=== PATIENT | female | born 1950 | race Two or more races ===

== ENCOUNTER → 2016-11-23 | Outpatient (REF) | payer BC | LOC: M LABNEURO 17:02 | PROVIDERS: ATTEND Internal Medicine Endocrinology, Diabetes & Metabolism | DX: E89.0 Postprocedural hypothyroidism (principal) ==

== ENCOUNTER → 2017-11-07 | Outpatient (REF) | payer BC | LOC: M LABNEURO 13:43 | DX: R19.7 Diarrhea, unspecified (principal); R11.2 Nausea with vomiting, unspecified | CPT/HCPCS: 87507 ==

== ENCOUNTER 2018-08-08 08:34 | Day surgery (SDC) | payer BC ==
[~2018-08-08 08:34] MED LIST: MIDAZOLAM INJ 2 MG/2 ML VIAL (J2250) As Ordered; fentaNYL 100 MCG/2 ML INJECTION (J3010) As Ordered
[2018-08-08] MEDS: OFLOXACIN 0.3 % (OCUFLOX) OPTH SOL 5ML OS (09:11)
[2018-08-08] MEDS: TROPICAMIDE 1% OPHTH SOLN 2ML OS (09:11)
[2018-08-08] MEDS: PHENYLEPHRINE 2.5% OPHTH SOL 2ML OS (09:12)
[2018-08-08] MEDS: PROPARACAINE 0.5% OPHTH SOL 15ML OS (09:12)
[2018-08-08] MEDS: POVIDONE-IODINE 5% OPHTH PREP SOL 30ML As Ordered (10:37)
[2018-08-08] MEDS: CEFUROXIME 1MG/0.1ML INTRACAMERAL INJ As Ordered (10:39)
[2018-08-08] MEDS: DUOVISC (0.50ML VISCOAT/0.55ML PROVISC) OPHTH KIT As Ordered ×2 (10:39→10:40)
[2018-08-08] MEDS: BALANCED SALT IRRIGATION SOLUTION 500ML BAG (FOR OR EYE MACHINE) As Ordered (10:39)
[2018-08-08] MEDS: LIDOCAINE 0.75%/EPINEPHRINE 0.025% IN BSS 1ML SYR INTRACAMERAL (OR ONLY) As Ordered (10:39)
[2018-08-08] MEDS ORDERED: ONDANSETRON 4MG/2ML VIAL (J2405) IV (11:15)
[2018-08-08] MEDS ORDERED: ACETAMINOPHEN TAB 650MG DOSE (2X325MG) As Ordered (11:18)
[2018-08-08] MEDS: ACETAMINOPHEN TAB 650MG DOSE (2X325MG) PO (11:20)
== END 2018-08-08 11:42 | disposition home or self-care (01) ==
LOC: M SDC 08:34
DX: H25.12 Age-related nuclear cataract, left eye (principal); H40.1120 Primary open-angle glaucoma, left eye, stage unspecified; E03.9 Hypothyroidism, unspecified; K21.9 Gastro-esophageal reflux disease without esophagitis; R06.83 Snoring; Z79.899 Other long term (current) drug therapy
CPT/HCPCS: 66984

== ENCOUNTER → 2019-07-09 | Outpatient (REF) | payer BC ==
[~2019-07-09] MED LIST changes: +AZIT500T5 PO; -MIDAZOLAM INJ 2 MG/2 ML VIAL (J2250) As Ordered; +SYNT100T PO; -fentaNYL 100 MCG/2 ML INJECTION (J3010) As Ordered
[2019-07-09 17:42] LABS: CHOLESTEROL LEVEL 157 MG/DL (<200); CHOLESTEROL RISK RATIO 2.415 (<5); FREE T4 1.15 NG/DL (0.76-1.46); HDL CHOLESTEROL 65 MG/DL (>40); LDL CHOLESTEROL 58 MG/DL (<100); NON-HDL-C 92 MG/DL; RHEUMATOID FACTOR QUANT < 10.0 IU/ML (<15.0); TRIGLYCERIDES LEVEL 171 MG/DL (<150)
[2019-07-09 17:44] LABS: FOLATE > 24.0 NG/ML; VITAMIN B12 LEVEL 719 PG/ML
[2019-07-09 18:41] LABS: HEMOGLOBIN A1c 6.9 %
[2019-07-11 14:09] LABS: ANTINUCLEAR ANTIBODIES DIRECT Negative (Negative)
== END ==
LOC: M LABNEURO 13:41
PROVIDERS: ATTEND Psychiatry & Neurology Neurology
DX: E03.9 Hypothyroidism, unspecified (principal); M54.5 Low back pain; M54.2 Cervicalgia

== ENCOUNTER → 2019-07-17 | Outpatient (REF) | payer BC ==
[~2019-07-17] MED LIST changes: +AZIT500T2 PO; -AZIT500T5 PO
== END ==
LOC: M LABDRAW1 10:31
PROVIDERS: ATTEND Internal Medicine Endocrinology, Diabetes & Metabolism
DX: M81.0 Age-related osteoporosis without current pathological fracture (principal)

== ENCOUNTER → 2019-11-24 | Outpatient (REF) | payer BC ==
[~2019-11-24] MED LIST changes: -AZIT500T2 PO; +AZIT500T5 PO
[2019-11-24 14:07] LABS: ALBUMIN 4.3 GM/DL (3.2-5.2); BILIRUBIN,TOTAL 0.5 MG/DL (0.2-1.0); CALCIUM LEVEL 9.3 MG/DL (8.8-10.2); CHOLESTEROL RISK RATIO 2.734 (<5); CREATININE FOR GFR 1.06 MG/DL (0.55-1.30); POTASSIUM SERUM 4.3 MEQ/L (3.5-5.1); THYROID STIMULATING HORMONE 6.07 uIU/ML (0.358-3.740); TOTAL 25(OH) VITAMIN D 27.4 NG/ML (30.0-100.0); TOTAL PROTEIN 7.5 GM/DL (6.4-8.2)
[2019-11-24 14:41] LABS: HEMOGLOBIN A1c 6.4 %
== END ==
LOC: M LABNEURO 13:05
PROVIDERS: ATTEND Internal Medicine Endocrinology, Diabetes & Metabolism
DX: M81.0 Age-related osteoporosis without current pathological fracture (principal)

== ENCOUNTER → 2022-06-20 | Outpatient (CLI) | payer BC ==
[2022-06-20 15:41] LABS: ALBUMIN 3.7 GM/DL (3.2-5.2); ALT/SGPT 36 U/L (12-78); BILIRUBIN,TOTAL 0.5 MG/DL (0.2-1.0); BLOOD UREA NITROGEN 14 MG/DL (7-18); CALCIUM LEVEL 9.6 MG/DL (8.8-10.2); CARBON DIOXIDE LEVEL 27 MEQ/L (21-32); CHLORIDE LEVEL 107 MEQ/L (98-107); CREATININE FOR GFR 0.85 MG/DL (0.55-1.30); GLOMERULAR FILTRATION RATE > 60.0 (>39); GLUCOSE, FASTING 109 MG/DL (70-100); POTASSIUM SERUM 4.4 MEQ/L (3.5-5.1); SODIUM LEVEL 138 MEQ/L (136-145); TOTAL PROTEIN 6.6 GM/DL (6.4-8.2)
[2022-06-20 16:09] LABS: TOTAL 25(OH) VITAMIN D 25.3 NG/ML (30.0-100.0)
== END ==
LOC: M PLALAB 09:34
PROVIDERS: ATTEND Internal Medicine Endocrinology, Diabetes & Metabolism
DX: M81.0 Age-related osteoporosis without current pathological fracture (principal); E03.9 Hypothyroidism, unspecified; E11.9 Type 2 diabetes mellitus without complications; E55.9 Vitamin D deficiency, unspecified

== ENCOUNTER → 2022-09-06 | Outpatient (CLI) | payer BC ==
[2022-09-06 15:17] LABS: THYROID STIMULATING HORMONE 0.491 uIU/ML (0.358-3.740)
[2022-09-06 15:57] LABS: TOTAL 25(OH) VITAMIN D 40.4 NG/ML (30.0-100.0)
[2022-09-06 16:37] LABS: HEMOGLOBIN A1c 6.8 %
== END ==
LOC: M PLALAB 09:58
PROVIDERS: ATTEND Internal Medicine Endocrinology, Diabetes & Metabolism
DX: M81.0 Age-related osteoporosis without current pathological fracture (principal); E03.9 Hypothyroidism, unspecified

== ENCOUNTER → 2023-01-09 | Outpatient (CLI) | payer BC ==
[2023-01-09 16:43] LABS: HEMOGLOBIN A1c 6.6 % (4.0-6.0)
== END ==
LOC: M PLALAB 09:21
PROVIDERS: ATTEND Internal Medicine Endocrinology, Diabetes & Metabolism
DX: M81.0 Age-related osteoporosis without current pathological fracture (principal); E11.9 Type 2 diabetes mellitus without complications

== ENCOUNTER → 2025-01-02 | Outpatient (CLI) | payer BC, MEDICARE ==
[2025-01-02 15:12] LABS: BASO # 0.1 10^3/uL (0.0-0.2); BASO % 0.6 % (0.0-1.0); EOS # 0.1 10^3/uL (0.0-0.5); EOS % 0.6 % (0.0-3.0); HEMATOCRIT 44.9 % (36.0-47.0); HEMOGLOBIN 14.7 g/dl (12.0-15.5); LYMPH # 2.3 10^3/uL (1.5-5.0); LYMPH % 27.1 % (24.0-44.0); MEAN CORPUSCULAR HEMOGLOBIN 32.7 pg (27.0-33.0); MEAN CORPUSCULAR HGB CONC 32.7 g/dl (32.0-36.5); MONO # 0.7 10^3/uL (0.0-0.8); MONO % 8.1 % (2.0-8.0); NEUTROPHILS # 5.5 10^3/uL (1.5-8.5); PLATELET COUNT, AUTOMATED 181 10^3/uL (150-450); RED BLOOD COUNT 4.49 10^6/uL (4.00-5.40); WHITE BLOOD COUNT 8.7 10^3/uL (4.0-10.0)
[2025-01-02 15:22] LABS: ALKALINE PHOSPHATASE 65 U/L (35-104); ALT/SGPT 33 U/L (7.0-40); AST/SGOT 27 U/L (<34); BILIRUBIN,TOTAL 0.5 MG/DL (0.3-1.2); BLOOD UREA NITROGEN 19 MG/DL (9-23); CALCIUM LEVEL 9.2 MG/DL (8.3-10.6); CARBON DIOXIDE LEVEL 26 MMOL/L (20-31); CHLORIDE LEVEL 107 MMOL/L (98-107); CHOLESTEROL LEVEL 181 MG/DL (<200); CHOLESTEROL RISK RATIO 2.69 (<5); CREATININE FOR GFR 0.89 MG/DL (0.55-1.30); GLOMERULAR FILTRATION RATE > 60.0 (>39); GLUCOSE, FASTING 133 MG/DL (74-106); HDL CHOLESTEROL 67.2 MG/DL (>40); NON-HDL-C 113.8 MG/DL; POTASSIUM SERUM 4.2 MMOL/L (3.5-5.1); SODIUM LEVEL 143 MMOL/L (136-145); TRIGLYCERIDES LEVEL 244 MG/DL (<150)
[2025-01-02 15:26] LABS: FREE T4 1.66 NG/DL (0.89-1.76); THYROID STIMULATING HORMONE 2.564 uIU/ML (0.55-4.78)
[2025-01-02 15:29] LABS: HEMOGLOBIN A1c 6.8 % (4.0-6.0)
== END ==
LOC: M PLALAB 12:57
PROVIDERS: ATTEND Psychiatry & Neurology Neurology
DX: R79.9 Abnormal finding of blood chemistry, unspecified (principal)

== ENCOUNTER → 2025-03-17 | Outpatient (CLI) | payer BC | LOC: M WHC 14:23 | PROVIDERS: ATTEND Psychiatry & Neurology Neurology | DX: Z12.31 Encounter for screening mammogram for malignant neoplasm of breast (principal) ==

== ENCOUNTER → 2025-03-25 | Outpatient (CLI) | payer BC | LOC: M WHC 14:36 | PROVIDERS: ATTEND Psychiatry & Neurology Neurology | DX: N63.10 Unspecified lump in the right breast, unspecified quadrant (principal); R92.313 Mammographic fatty tissue density, bilateral breasts | CPT/HCPCS: 76642; 77065; G0279 ==

== ENCOUNTER → 2025-05-13 | Outpatient (CLI) | payer BC ==
[2025-05-13 10:51] LABS: BASO # 0.0 10^3/uL (0.0-0.2); BASO % 0.4 % (0.0-1.0); EOS # 0.0 10^3/uL (0.0-0.5); EOS % 0.4 % (0.0-3.0); LYMPH # 1.9 10^3/uL (1.5-5.0); LYMPH % 22.5 % (24.0-44.0); MONO # 0.6 10^3/uL (0.0-0.8); MONO % 7.8 % (2.0-8.0); NEUTROPHILS # 5.6 10^3/uL (1.5-8.5); NEUTROPHILS % 67.4 % (36.0-66.0); PLATELET COUNT, AUTOMATED 162 10^3/uL (150-450)
[2025-05-13 11:21] LABS: ALT/SGPT 30.0 U/L (7.0-40); AST/SGOT 21.0 U/L (<34); CALCIUM LEVEL 9.5 MG/DL (8.3-10.6); CARBON DIOXIDE LEVEL 27.0 MMOL/L (20-31); CHLORIDE LEVEL 104.0 MMOL/L (98-107); CHOLESTEROL LEVEL 200.0 MG/DL (<200); CHOLESTEROL RISK RATIO 2.55 (<5); CREATININE FOR GFR 0.9 MG/DL (0.55-1.30); GLOMERULAR FILTRATION RATE 67.5 (>39); LDL CHOLESTEROL 97.1 MG/DL (<100); NON-HDL-C 121.7 MG/DL; POTASSIUM SERUM 4.8 MMOL/L (3.5-5.1); SODIUM LEVEL 143.0 MMOL/L (136-145); TRIGLYCERIDES LEVEL 123.0 MG/DL (<150)
[2025-05-13 11:22] LABS: FREE T4 1.91 NG/DL (0.89-1.76)
[2025-05-13 12:50] LABS: ESTIMATED AVERAGE GLUCOSE 212.0 MG/DL (60-110)
== END ==
LOC: M PLALAB 09:13
PROVIDERS: ATTEND Psychiatry & Neurology Neurology
DX: E11.9 Type 2 diabetes mellitus without complications (principal)

== ENCOUNTER → 2025-07-02 | Outpatient (CLI) | payer BC ==
[2025-07-02 13:36] LABS: CK-MB VALUE MASS 2.4 NG/ML (<3.6)
[2025-07-02 13:38] LABS: C REACTIVE PROTEIN QUANTITATIV < 0.50 MG/DL (<1.0); CHOLESTEROL LEVEL 183 MG/DL (<200); CHOLESTEROL RISK RATIO 3.32 (<5); CPK CREATINE PHOSPHOKINASE 132 U/L (34-145); LDL CHOLESTEROL 102.6 MG/DL (<100); MB/CK RELATIVE INDEX 1.81 (< OR =4); NON-HDL-C 128.0 MG/DL; TRIGLYCERIDES LEVEL 127 MG/DL (<150)
[2025-07-02 13:40] LABS: FREE T4 1.81 NG/DL (0.89-1.76)
[2025-07-02 13:43] LABS: RHEUMATOID FACTOR QUANT < 3.5 IU/ML (<14)
[2025-07-02 13:51] LABS: ESTIMATED AVERAGE GLUCOSE 206.0 MG/DL (60-110)
[2025-07-03 09:49] LABS: DRVV SCREEN 41.7 SECONDS
[2025-07-03 09:52] LABS: PTT LUPUS TYPE ANTICOAG SCREEN 1.1 (0-1.20)
== END ==
LOC: M PLALAB 10:36
PROVIDERS: ATTEND Psychiatry & Neurology Neurology
DX: E03.9 Hypothyroidism, unspecified (principal); E11.9 Type 2 diabetes mellitus without complications; R07.9 Chest pain, unspecified

== ENCOUNTER → 2025-07-31 | Outpatient (CLI) | payer BC ==
[2025-07-31 15:10] LABS: BASO # 0.1 10^3/uL (0.0-0.2); BASO % 0.6 % (0.0-1.0); EOS # 0.1 10^3/uL (0.0-0.5); EOS % 0.8 % (0.0-3.0); LYMPH # 2.0 10^3/uL (1.5-5.0); LYMPH % 25.1 % (24.0-44.0); MONO # 0.7 10^3/uL (0.0-0.8); MONO % 9.3 % (2.0-8.0); NEUTROPHILS # 4.9 10^3/uL (1.5-8.5); NEUTROPHILS % 62.8 % (36.0-66.0); PLATELET COUNT, AUTOMATED 183 10^3/uL (150-450)
[2025-07-31 15:29] LABS: AMORPHOUS SEDIMENT SMALL (NEGATIVE); APPEARANCE, URINE CLOUDY (CLEAR); BACTERIA, URINE AUTO 2+ (NEGATIVE); BILIRUBIN, URINE AUTO NEGATIVE (NEGATIVE); BLOOD, URINE BLOOD NEGATIVE (NEGATIVE); GLUCOSE, URINE (UA) AUTO NEGATIVE (NEGATIVE); KETONE, URINE AUTO NEGATIVE (NEGATIVE); LEUKOCYTE ESTERASE, URINE AUTO 1+ (NEGATIVE); MUCUS, URINE SMALL (NEGATIVE); NITRITE, URINE AUTO POSITIVE (NEGATIVE); PROTEIN, URINE AUTO 1+ mg/dL (NEGATIVE); RBC, URINE AUTO 4 /HPF (0-3); SPECIFIC GRAVITY URINE AUTO 1.019 (1.002-1.035); SQUAMOUS EPITHELIAL CELL UR AU 29 /HPF (0-6); UROBILINOGEN, URINE AUTO 4.0 mg/dL (0.0-2.0); WBC, URINE AUTO 25 /HPF (0-3)
[2025-07-31 15:33] LABS: ALT/SGPT 17.0 U/L (7.0-40); AST/SGOT 18.0 U/L (<34); CALCIUM LEVEL 8.9 MG/DL (8.3-10.6); CARBON DIOXIDE LEVEL 28.0 MMOL/L (20-31); CHLORIDE LEVEL 103.0 MMOL/L (98-107); CHOLESTEROL LEVEL 168.0 MG/DL (<200); CHOLESTEROL RISK RATIO 2.78 (<5); CREATININE FOR GFR 0.77 MG/DL (0.55-1.30); GLOMERULAR FILTRATION RATE 81.4 (>39); LDL CHOLESTEROL 87.2 MG/DL (<100); NON-HDL-C 107.6 MG/DL; POTASSIUM SERUM 4.4 MMOL/L (3.5-5.1); SODIUM LEVEL 140.0 MMOL/L (136-145); TRIGLYCERIDES LEVEL 102.0 MG/DL (<150)
[2025-07-31 15:34] LABS: FREE T4 1.89 NG/DL (0.89-1.76)
[2025-07-31 15:41] LABS: ESTIMATED AVERAGE GLUCOSE 177.0 MG/DL (60-110)
== END ==
LOC: M PLALAB 08:57
PROVIDERS: ATTEND Psychiatry & Neurology Neurology
DX: E03.9 Hypothyroidism, unspecified (principal); E11.9 Type 2 diabetes mellitus without complications; D69.9 Hemorrhagic condition, unspecified

== ENCOUNTER → 2025-08-03 | Outpatient (REF) | payer BC | LOC: M PLALAB 13:08 | PROVIDERS: ATTEND Psychiatry & Neurology Neurology | DX: E56.1 Deficiency of vitamin K (principal) ==

== ENCOUNTER → 2025-09-28 | Outpatient (CLI) | payer BC, MEDICARE | LOC: M WHC 15:47 | PROVIDERS: ATTEND Psychiatry & Neurology Neurology | DX: R92.8 Other abnormal and inconclusive findings on diagnostic imaging of breast (principal) ==

== ENCOUNTER → 2025-11-03 | Outpatient (CLI) | payer BC ==
[2025-11-03 16:23] LABS: BASO # 0.1 10^3/uL (0.0-0.2); BASO % 0.7 % (0.0-1.0); EOS # 0.2 10^3/uL (0.0-0.5); EOS % 1.6 % (0.0-3.0); LYMPH # 2.0 10^3/uL (1.5-5.0); LYMPH % 20.3 % (24.0-44.0); MONO # 0.9 10^3/uL (0.0-0.8); MONO % 8.8 % (2.0-8.0); NEUTROPHILS # 6.6 10^3/uL (1.5-8.5); NEUTROPHILS % 68.3 % (36.0-66.0); PLATELET COUNT, AUTOMATED 184 10^3/uL (150-450)
[2025-11-03 16:32] LABS: ESTIMATED AVERAGE GLUCOSE 140.0 MG/DL (60-110)
[2025-11-03 16:42] LABS: ALT/SGPT 24.0 U/L (7.0-40); AST/SGOT 25.0 U/L (<34); CALCIUM LEVEL 9.4 MG/DL (8.3-10.6); CARBON DIOXIDE LEVEL 28.0 MMOL/L (20-31); CHLORIDE LEVEL 105.0 MMOL/L (98-107); CHOLESTEROL LEVEL 169.0 MG/DL (<200); CHOLESTEROL RISK RATIO 3.23 (<5); CREATININE FOR GFR 0.87 MG/DL (0.55-1.30); GLOMERULAR FILTRATION RATE 70.3 (>39); LDL CHOLESTEROL 76.9 MG/DL (<100); NON-HDL-C 116.7 MG/DL; POTASSIUM SERUM 4.3 MMOL/L (3.5-5.1); SODIUM LEVEL 139.0 MMOL/L (136-145); TRIGLYCERIDES LEVEL 199.0 MG/DL (<150)
[2025-11-03 16:43] LABS: THYROXINE (T4) 9.1 UG/DL (4.5-10.9)
[2025-11-03 16:44] LABS: T UPTAKE 34.3 % (22.5-37.0)
== END ==
LOC: M PLALAB 12:32
PROVIDERS: ATTEND Psychiatry & Neurology Neurology
DX: E03.9 Hypothyroidism, unspecified (principal); E78.00 Pure hypercholesterolemia, unspecified